=== PATIENT | female | born 1950 | race Caucasian/White ===

== ENCOUNTER 2023-10-15 07:15 | Outpatient (OUT) | payer MEDICARE, SELFPAY ==
--- NOTE | 2023-10-15 07:40 | MM_ITS ---
Patient Name: MANOJ DICKEY MR#: [id number] : 1950 Exam Date: 10/15/2023 Ordering Doctor: Non-Staff Physician RADIOLOGY REPORT PROCEDURE: MM TOMOSYNTHESIS SCREENING BI COMPARISON: MG MAMM SCREEN 3D ODILIA CAD, 10/13/2021. MG MAMM SCREEN 3D [place]ILIA CAD, 10/14/2022. INDICATIONS: screening venkat Calculator Name NCI Breast Cancer Risk Assessment Tool 5 Year Breast Cancer Risk 1.60% Lifetime Breast Cancer Risk 3.70% Personal Breast Cancer No Personal Ovarian Cancer No Treatments None Family Cancers None LOCATION: [facility] BREAST COMPOSITION: Heterogeneously dense,which may obscure small masses. FINDINGS: DIAGNOSTIC CATEGORY 1--NEGATIVE. NO CHANGE FROM COMPARISON ASSESSMENT. RIGHT BREAST: No significant suspicious finding. LEFT BREAST: No significant suspicious finding. RECOMMENDATIONS: ROUTINE MAMMOGRAM AND CLINICAL EVALUATION IN 12 MONTHS. PLEASE NOTE: A NORMAL MAMMOGRAM DOES NOT EXCLUDE THE POSSIBILITY OF BREAST CANCER. A CLINICALLY SUSPICIOUS PALPABLE LUMP SHOULD BE BIOPSIED. Dictated by: Haresh Price MD on 10/15/2023 at 08:39 Approved by: Haresh Price MD on 10/15/2023 at 08:40
== END 2023-10-15 07:16 | disposition home or self-care (01) ==
LOC: MAMMO 07:15
DX: Z12.31 Encounter for screening mammogram for malignant neoplasm of breast (principal)
CPT/HCPCS: 77063; 77067

== ENCOUNTER 2024-10-16 07:45 | Outpatient (OUT) | payer MEDICARE, SELFPAY ==
--- NOTE | 2024-10-16 07:50 | MM_ITS ---
Patient Name: MANOJ DICKEY MR#: [id number] : 1950 Exam Date: 10/16/2024 Ordering Doctor: ROMAN ARCHIBALD RADIOLOGY REPORT PROCEDURE: MM TOMOSYNTHESIS SCREENING BI COMPARISON: MG MAMM SCREEN 3D [place]ILIA CAD, 10/14/2022. MM TOMOSYNTHESIS SCREENING BI, 10/15/2023. INDICATIONS: Screening Calculator Name NCI Breast Cancer Risk Assessment Tool 5 Year Breast Cancer Risk 1.60% Lifetime Breast Cancer Risk 3.40% Personal Breast Cancer No Personal Ovarian Cancer No Treatments None Family Cancers None LOCATION: [facility] BREAST COMPOSITION: The breasts are heterogeneously dense,which may obscure small masses. FINDINGS: DIAGNOSTIC CATEGORY 1--NEGATIVE. NO CHANGE FROM COMPARISON ASSESSMENT. RIGHT BREAST: No significant suspicious finding. LEFT BREAST: No significant suspicious finding. RECOMMENDATIONS: ROUTINE MAMMOGRAM AND CLINICAL EVALUATION IN 12 MONTHS. PLEASE NOTE: A NORMAL MAMMOGRAM DOES NOT EXCLUDE THE POSSIBILITY OF BREAST CANCER. A CLINICALLY SUSPICIOUS PALPABLE LUMP SHOULD BE BIOPSIED. Dictated by: Haresh Price MD on 10/16/2024 at 09:05 Approved by: Haresh Price MD on 10/16/2024 at 09:09
--- OUTSIDE RECORDS SUMMARY | 2024-10-16 07:56 | XMS_ITS | CCD ---
Author Organization [facility] Care Team Providers Care 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 Name Role Phone Roman Archibald Primary Care Provider MIS, DR SY Admitting Unavailable [facility], DR SY Primary Care Unavailable [facility], DR SY Consulting Unavailable [facility], DR SY Attending Unavailable [facility], DR RAFAEL White Consulting Unavailable Might [employer] Primary Care Provider MIGHT, ROMAN Jones Referring Unavailable MIGHT, ROMAN Jones Primary Care Unavailable MIGHT, ROMAN Jones Primary Care Unavailable MIGHTROMAN Primary Care Unavailable MIGHT, ROMAN Jones Referring Unavailable MIGHT, ROMAN Jones Referring Unavailable MIGHT, ROMAN Jones Primary Care Unavailable MIGHT, ROMAN Jones Referring Unavailable MIGHT, ROMAN Jones Primary Care Unavailable Medications Current Medications Medication Drug Class(es) Dates Sig (Normalized) Sig (Original) ascorbic acid 100 mg oral tablet (4 sources) Vitamin C take 1 tablet by mouth once daily Ascorbic Acid (VITAMIN C) 100 MG tablet Take 1 tablet by mouth daily 0 Active ascorbic acid 60 mg / beta carotene 5000 unt / copper sulfate 40 mg / dl-alpha tocopheryl acetate 30 unt / sodium selenite 0.04 mg / zinc oxide 40 mg oral tablet (1 source) Vitamin C take 1 tablet by mouth once daily Multiple Vitamins-Minerals (THERAPEUTIC MULTIVITAMIN-ENERGY TRADING ANALYST ALS) tablet Take 1 tablet by mouth daily 0 Active aspirin 81 mg oral tablet (2 sources) Platelet Aggregation Inhibitor, Nonsteroidal Anti-inflammatory Drug take 1 tablet by mouth once daily aspirin 81 MG tablet Take 81 mg by mouth daily 0 Active calcium carbonate 500 mg oral tablet (5 sources) take 2 tablets by mouth twice daily calcium carbonate (OSCAL) 500 MG TABS tablet Take 2 tablets by mouth 2 times daily 0 Active calcium carbonat e (OSCAL) 500 MG TABS tablet Take 1,000 mg by mouth 2 times daily 0 Active cholecalciferol 0.05 mg oral capsule (4 sources) Vitamin D Cholecalciferol (VITAMIN D3) 50 MCG (1999 UT) CAPS Take by mouth 0 Active dicyclomine hydrochloride 20 mg oral tablet (3 sources) Anticholinergic Start: 09-20-20 End: 09-20-20 take 1 tablet by mouth four times daily as needed dicyclomine (BENTYL) 20 MG tablet Take 1 tablet by mouth 4 times daily as needed (abdominal cramping) 20 tablet 0 09/20/2023 09/20/2023 Discontinued Start: 09-20-2023 dicyclomine (B ENTYL) capsule 10 mg famotidine 20 mg oral tablet (2 sources) Histamine-2 Receptor Antagonist Start: 09-20-2023 End: 10-04-2023 take 1 tablet by mouth twice daily famotidine (PEPCID) 20 MG tablet Take 1 tablet by mouth 2 times daily for 14 days 28 tablet 0 09/20/2023 09/20/2023 Discontinued Multiple Vitamins-Minerals (THERAPEUTIC MULTIVITAMIN-ENERGY TRADING ANALYST ALS) tablet (4 sources) take 1 tablet by mouth once daily Multiple Vitamins-Minerals (THERAPEUTIC MULTIVITAMIN-MINERAL S) tablet Take 1 tablet by mouth daily 0 Active Highland-3 Fatty Acids (FISH OIL PO) (5 sources) Highland-3 Fatty Ac ids (FISH OIL PO) Take by mouth 0 Active simvastatin 10 mg oral tablet (5 sources) HMG-CoA Reductase Inhibitor Start: 08-02-2023 simvastatin (ZOCOR) 10 MG tablet Indications: Hyperlipidemia, unspecified hyperlipidemia type TAKE 1 TABLET NIGHTLY 90 tablet 3 08/02/2023 Active Start: 08-05-2022 simvastatin (Z OCOR) 10 MG tablet Indications: Hyperlipidemia, unspecified hyperlipidemia type TAKE 1 TABLET NIGHTLY 90 tablet 3 08/05/2022 Active Start: 08-14-2020 take 1 tablet by alyse th once daily simvastatin (ZOCOR) 10 MG tablet Indications: Hyperlipidemia, unspecified hyperlipidemia type Take 1 tablet by mouth nightly 90 tablet 3 08/14/2020 Active Start: 05-22-2019 simvastatin (Z OCOR) 10 MG tablet Indications: Hyperlipidemia, unspecified hyperlipidemia type TAKE 1 TABLET NIGHTLY 90 tablet 4 05/22/2019 Active Problems Active Problems Problem Classification Problem Date Documented Da te Episodic/Chronic Disorders of lipid metabolism (9 sources) Dyslipidemia; Translations: [Hyperlipidemia] Onset: 05-23-2018 05-23-2018 Chronic Other nervous system disorders (3 sources) Other chronic pain; Translations: [Other chronic pain] Onset: 01-19-2024 Chronic Other non-traumatic joint disorders (3 sources) Pain in left shoulder; Translations: [Pain in left shoulder] Onset: 01-19-2024 Episodic Other non-traumatic joint disorders (3 sources) Other specified joint disorders, left shoulder; Translations: [Other specified joint disorders, left shoulder] Onset: 01-19-2024 Episodic Other screening for suspected conditions (not mental disorders or infectious disease) (6 sources) Patient encounter status; Translations: [Encounter for screening for lipoid disorders] Onset: 10-14-2022 Episodic Past or Other Problems Problem Classification Problem Date Documented Da te Episodic/Chronic Gastritis and duodenitis (2 sources) Acute superficial gastritis; Translations: [Acute gastritis without bleeding] Onset: 09-20-2023 09-20-2023 Episodic Unclassified (1 source) Onset: 10-26-2023 10-26-2023 Results Test Name Value Interpretation Reference Range Facility XR SHOULDER LEFT (MIN 2 VIEW S)on 01-22-2024 XR SHOULDER LEFT (MIN 2 VIEWS) EXAMINATION: 3 XRAY VIEWS OF THE LEFT SHOULDER 01/19/2024 9:48 am COMPARISON: None. HISTORY: ORDERING SYSTEM PROVIDED HISTORY: Chronic left shoulder pain TECHNOLOGIST PROVIDED HISTORY: pain, numbness FINDINGS: There is no evidence of acute fracture. Alignment appears intact. There is a tiny calcification adjacent to the greater tuberosity which could indicate rotator cuff calcific tendinitis. Joint spaces appear intact. IMPRESSION: No acute osseous abnormality. Suspect rotator cuff calcific tendinitis Interpreted by: Navi Anthony MD Signed by: Navi Anthony MD 01/22/24 Final result Normal [facility] Lipid Profileon 10-21-2023 Cholesterol [Mass/Vol] 237 mg/dL High 0-199 [facility] Comment on above: Result Comment: Cholesterol Guidelines: <200 Desirable 200-240 Borderline >240 Undesirable Performed By: #### L IPR #### [facility] [employer] [address] [place] [id number] Dance Instructor: Ar Mcclure MD Cholesterol in HDL [Mass/Vol] 106 mg/dL Normal >40 [facility] Comment on above: Result Comment: HDL Guidelines: <40 Undesirable 40-59 Borderline >59 Desirable Performed By: #### L IPR #### [facility] [employer] [address] [place] [id number] Dance Instructor: Ar Mcclure MD Cholesterol in LDL [Mass/Vol] 119 mg/dL High 0-100 [facility] Comment on above: Result Comment: LDL Guidelines: <100 Desirable 100-129 Near to/above Desirable 130-159 Borderline >159 Undesirable Direct (measured) LDL and calculated LDL are not interchangeable tests. Performed By: #### L IPR #### [facility] [employer] [address] [place] [id number] Dance Instructor: Ar Mcclure MD Cholesterol in VLDL [Mass/Vol] 12 mg/dL Normal [facility] Comment on above: Performed By: #### L IPR #### [address] [address] Dance Instructor: Ar Mcclure MD Cholesterol.total/Choles terol in HDL [Mass ratio] 2.0 {ratio} Normal [facility] Comment on above: Performed By: #### L IPR #### [facility] [employer] [address] [place] [address] Dance Instructor: Ar Mcclure MD Triglyceride [Mass/Vol] 61 mg/dL Normal <150 M [facility] Comment on above: Result Comment: Triglyceride Guidelines: <150 Desirable 150-199 Borderline 200-499 High >499 Very high Based on AHA Guidelines for fasting triglyceride, July 2012. Performed By: #### L IPR #### [facility] [employer] [address] [place] [id number] Dance Instructor: Ar Mcclure MD CBC with Auto Differentialon 09-20-2023 Basophils (Bld) [#/Vol] 0.04 10*3/uL [facility] [employer] Basophils/100 WBC (Bld) 1 % 0 - 2 % [facility] Eosinophils (Bld) [#/Vol] 0.06 10*3/uL [facility] Eosinophils/100 WBC (Bld) 1 % 1 - 4 % [facility] Erythrocyte distribution width (RBC) [Ratio] 12.7 % 11.8 - 14.4 % [facility] Hematocrit (Bld) [Volume fraction] 41.7 % 36.3 - 47.1 % [facility] Hemoglobin (Bld) [Mass/Vol] 13.8 g/dL 11.9 - 15.1 g/dL [facility] Immature granulocytes (Bld) [#/Vol] [facility] Immature granulocytes/100 WBC (Bld) 0 % 0 [facility] Interpretation and review of laboratory results Abnormal [facility] Lymphocytes/100 WBC (Bld) 16 % Low 24 - 43 % [facility] Lymphocytes/100 WBC (Bld) 1.07 % Low [facility] MCH (RBC) [Entitic mass] 30.9 pg 25.2 - 33.5 pg [facility] MCHC (RBC) [Mass/Vol] 33.1 g/dL 28.4 - 34.8 g/dL [facility] MCV (RBC) [Entitic vol] 93.5 fL 82.6 - 102.9 fL [facility] Monocytes/100 WBC (Bld) 9 % 3 - 12 % [facility] Monocytes/100 WBC (Bld) 0.57 % [facility] Neutrophils/100 WBC (Bld) 73 % High 36 - 65 % [facility] Nucleated RBC/100 WBC (Bld) [Ratio] 0.0 % 0.0 per 100 WBC [facility] Platelet mean volume (Bld) [Entitic vol] 9.7 fL 8.1 - 13.5 fL [facility] Platelets (Bld) [#/Vol] 263 10*3/uL [facility] RBC (Bld) [#/Vol] 4.46 10*6/uL 3.95 - 5.1 1 m/uL [facility] Segmented neutrophils/100 WBC (Bld) 4.91 % [facility] WBC other (Bld) [#/Vol] 6.7 [facility] CBC with Diffon 09-20-2023 Abs. Basophil 0.04 k/uL Normal 0.00-0.20 [facility] Comment on above: Performed By: #### C DP, CP, LIP #### [facility] [address] [place] [address] Dance Instructor: Haresh Holley MD Abs.Imm.Granulocyte <0.03 Normal 0.00-0.30 [facility] Comment on above: Performed By: #### C DP, CP, LIP #### [facility] [address] [place] [address] Dance Instructor: Haresh Holley MD Abs.Neutrophil (Seg) 4.91 k/uL Normal 1.50-8.10 [facility] Comment on above: Performed By: #### C DP, CP, LIP #### [address] [place] [address] Dance Instructor: Haresh Holley MD Basophils/100 WBC (Bld) 1 % Normal 0-2 [facility] Comment on above: Performed By: #### C DP, CP, LIP #### [address] [place] [address] Dance Instructor: Haresh Holley MD Eosinophils (Bld) [#/Vol] 0.06 10*3/uL Normal 0.00-0.44 [facility] Comment on above: Performed By: #### C DP, CP, LIP #### [facility] [address] [place] [address] Dance Instructor: Haresh Holley MD Eosinophils/100 WBC (Bld) 1 % Normal 1-4 [facility] Comment on above: Performed By: #### C DP, CP, LIP #### [facility] [address] [place], [place] [id number] Dance Instructor: Haresh Holley MD Erythrocyte distribution width (RBC) [Ratio] 12.7 % Normal 11.8-14.4 [facility] Comment on above: Performed By: #### C DP, CP, LIP #### [facility] [address] [place], [place] [phone] Dance Instructor: Haresh Holley MD Hematocrit (Bld) [Volume fraction] 41.7 % Normal 36.3-47.1 [facility] Comment on above: Performed By: #### C DP, CP, LIP #### [facility] [address] [place], [place] [phone] Dance Instructor: Haresh Holley MD Hemoglobin (Bld) [Mass/Vol] 13.8 g/dL Normal 11.9-15.1 [facility] Comment on above: Performed By: #### C DP, CP, LIP #### [address] [place], [facility]83 Dance Instructor: Haresh Holley MD Immature granulocytes/100 WBC (Bld) 0 % Normal 0 [facility] Comment on above: Performed By: #### C DP, CP, LIP #### [address] [place], [facility]83 Dance Instructor: Haresh Hloley MD Lymphocytes (Bld) [#/Vol] 1.07 10*3/uL Low 1.10-3.70 [facility] Comment on above: Performed By: #### C DP, CP, LIP #### [facility] [address] [place], [facility]83 Dance Instructor: Haresh Holley MD Lymphocytes/100 WBC (Bld) 16 % Low 24-43 [facility] Comment on above: Performed By: #### C DP, CP, LIP #### [facility] [address] [place] [address] Dance Instructor: Haresh Holley MD MCH (RBC) [Entitic mass] 30.9 pg Normal 25.2-33.5 [facility] Comment on above: Performed By: #### C DP, CP, LIP #### [address] [place] [address] Dance Instructor: Haresh Holley MD MCHC (RBC) [Mass/Vol] 33.1 g/dL Normal 28.4-34.8 [facility] Comment on above: Performed By: #### C DP, CP, LIP #### [address] [place] [address] Dance Instructor: Haresh Holley MD MCV (RBC) [Entitic vol] 93.5 fL Normal 82.6-102.9 [facility] Comment on above: Performed By: #### C DP CP, LIP #### [address] [place] [address] Dance Instructor: Haresh Holley MD Monocytes (Bld) [#/Vol] 0.57 10*3/uL Normal 0.10-1.20 [facility] Comment on above: Performed By: #### C DP CP, LIP #### [address] [place] [address] Dance Instructor: Haresh Holley MD Monocytes/100 WBC (Bld) 9 % Normal 3-12 [facility] Comment on above: Performed By: #### C DP CP, LIP #### [address] [place], [facility]83 Dance Instructor: Haresh Holley MD Neutrophil (Seg) 73 % High 36-65 [facility] Comment on above: Performed By: #### C DP CP, LIP #### [address] [place] [phone] Dance Instructor: Haresh Holley MD NRBC Automated 0.0 per 100 WBC Normal 0.0 [facility] Comment on above: Performed By: #### C DP, CP, LIP #### [facility] [address] [place], [place] [phone] Dance Instructor: Haresh Holley MD Platelet mean volume (Bld) [Entitic vol] 9.7 fL Normal 8.1-13.5 [facility] Comment on above: Performed By: #### C DP, CP, LIP #### [facility] [address] [place] [address] Dance Instructor: Haresh Holley MD Platelets (Bld) [#/Vol] 263 10*3/uL Normal 138-453 [facility] Comment on above: Performed By: #### C DP, CP, LIP #### [facility] [address] [place] [address] Dance Instructor: Haresh Holley MD RBC (Bld) [#/Vol] 4.46 10*6/uL Normal 3.95-5.11 [facility] Comment on above: Performed By: #### C DP, CP, LIP #### [address] [place], [place] [phone] Dance Instructor: Haresh Holley MD WBC (Bld) [#/Vol] 6.7 10*3/uL Normal 3.5-11.3 [facility] Comment on above: Performed By: #### C DP, CP, LIP #### [address] [place], [place] [phone] Dance Instructor: Haresh Holley MD Comp Metabolic Profon 2022 Albumin [Mass/Vol] 4.2 g/dL Normal 3.5-5.2 [facility] Comment on above: Performed By: #### C DP, CP, LIP #### [facility] [address] [place], [place] [phone] Dance Instructor: Haresh Holley MD Albumin/Glob Ratio 1.6 Normal 1.0-2.5 [facility] Comment on above: Performed By: #### C DP, CP, LIP #### [facility] [address] [place], [place] [phone] Dance Instructor: Haresh Holley MD Alkaline Phos 54 U/L Normal 35-104 [facility] Comment on above: Performed By: #### C DP, CP, LIP #### [facility] [address] [place], [place] [phone] Dance Instructor: Haresh Holley MD ALT [Catalytic activity/Vol] 12 U/L Normal 5-33 [facility] Comment on above: Performed By: #### C DP, CP, LIP #### [facility] [address] [place], [place] [phone] Dance Instructor: Haresh Holley MD Anion gap [Moles/Vol] 11 mmol/L Normal 9-17 [facility] Comment on above: Performed By: #### C DP, CP, LIP #### [facility] [address] [place], [place] [phone] Dance Instructor: Haresh Holley MD AST [Catalytic activity/Vol] 20 U/L Normal <32 [facility] Comment on above: Performed By: #### C DP, CP, LIP #### [facility] [address] [place], [place] [phone] Dance Instructor: Haresh Holley MD Bilirubin [Mass/Vol] 0.5 mg/dL Normal 0.3-1.2 [facility] Comment on above: Performed By: #### C DP, CP, LIP #### [facility] [address] [place], [place] [phone] Dance Instructor: Haresh Holley MD BUN/CRE Ratio 17 Normal 9-20 [facility] Comment on above: Performed By: #### C DP, CP, LIP #### [facility] [address] [place], [place] [phone] Dance Instructor: Haresh Holley MD Calcium [Mass/Vol] 10.1 mg/dL Normal 8.6-10.4 [facility] Comment on above: Performed By: #### C ROMAIN CP, LIP #### [facility] [address] [place] [address] Dance Instructor: Haresh Holley MD Chloride [Moles/Vol] 98 mmol/L Normal 98-107 [facility] Comment on above: Performed By: #### C ROMAIN CP, LIP #### [facility] [address] [place] [address] Dance Instructor: Haresh Holley MD CO2 [Moles/Vol] 27 mmol/L Normal 20-31 [facility] Comment on above: Performed By: #### C ROMAIN CP, LIP #### [facility] [address] [place], [place] [phone] Dance Instructor: Haresh Holley MD Creatinine [Mass/Vol] 0.6 mg/dL Normal 0.5-0.9 [facility] Comment on above: Performed By: #### C JANET HOYOS, LIP #### [facility] [address] [place] [address] Dance Instructor: Haresh Holley MD GFR/1.73 sq M.predicted among non-blacks MDRD (S/P/Bld) [Vol rate/Area] mL/min/{1.73_m2} Normal >60 [facility] Comment on above: Result Comment: These results are not intended for use in patients <18 years of age. eGFR results are calculated without a race factor using the 2020 CKD-EPI equation. Careful clinical correlation is recommended, particularly when comparing to results calculated using previous equations. The CKD-EPI equation is less accurate in patients with extremes of muscle mass, extra-renal metabolism of creatine, excessive creatine ingestion, or following therapy that affects renal tubular secretion. Performed By: #### C DP, CP, LIP #### [facility] [address] [place] [address] Dance Instructor: Haresh Holley MD Glucose [Mass/Vol] 131 mg/dL High 70-99 [facility] Comment on above: Performed By: #### C DP CP, LIP #### [facility] [address] [place] [address] Dance Instructor: Haresh Holley MD Potassium [Moles/Vol] 3.9 mmol/L Normal 3.7-5.3 [facility] Comment on above: Performed By: #### C DP CP, LIP #### [facility] [address] [place] [address] Dance Instructor: Haresh Holley MD Protein [Mass/Vol] 6.9 g/dL Normal 6.4-8.3 [facility] Comment on above: Performed By: #### C ROMAIN CP, LIP #### [facility] [address] [place] [address] Dance Instructor: Haresh Holley MD Sodium [Moles/Vol] 136 mmol/L Normal 135-144 [facility] Comment on above: Performed By: #### C ROMAIN CP, LIP #### [facility] [address] [place] [address] Dance Instructor: Haresh Holley MD Urea nitrogen [Mass/Vol] 10 mg/dL Normal 8-23 [facility] Comment on above: Performed By: #### C ROMAIN CP, LIP #### [facility] [address] [place], [place] [phone] Dance Instructor: Haresh Holley MD Comprehensive Metabolic Pane [facility] 09-20-2023 Albumin [Mass/Vol] 4.2 g/dL 3.5 - 5.2 g/dL [facility] Albumin/Globulin [Mass ratio] 1.6 {ratio} 1.0 - 2.5 [facility] ALP [Catalytic activity/Vol] 54 U/L 35 - 104 U/L [facility] ALT [Catalytic activity/Vol] 12 U/L 5 - 33 U/L [facility] Anion gap [Moles/Vol] 11 mmol/L 9 - 17 mmol/L [facility] AST [Catalytic activity/Vol] 20 U/L NINF - 32 U/L [facility] Bilirubin [Mass/Vol] 0.5 mg/dL 0.3 - 1 .2 mg/dL [facility] Calcium [Mass/Vol] 10.1 mg/dL 8.6 - 10. 4 mg/dL [facility] Chloride [Moles/Vol] 98 mmol/L 98 - 10 7 mmol/L [facility] CO2 [Moles/Vol] 27 mmol/L 20 - 31 mmol/L [facility] Creatinine [Mass/Vol] 0.6 mg/dL 0.5 - 0.9 mg/dL [facility] GFR/1.73 sq M.predicted MDRD (S/P/Bld) [Vol rate/Area] - PINF [facility] Comment on above: These results are not intended for use in patients <18 years of age. eGFR results are calculated without a race factor using the 2020 CKD-EPI equation. Careful clinical correlation is recommended, particularly when comparing to results calculated using previous equations. The CKD-EPI equation is less accurate in patients with extremes of muscle mass, extra-renal metabolism of creatine, excessive creatine ingestion, or following therapy that affects renal tubular secretion. Glucose [Mass/Vol] 131 mg/dL High 70 - 99 mg/dL [facility] Interpretation and review of laboratory results Abnormal [facility] Potassium [Moles/Vol] 3.9 mmol/L 3.7 - 5.3 mmol/L [facility] Protein [Mass/Vol] 6.9 g/dL 6.4 - 8.3 g/dL [facility] Sodium [Moles/Vol] 136 mmol/L 135 - 144 mmol/L [facility] Urea nitrogen [Mass/Vol] 10 mg/dL 8 - 23 mg/d L [facility] Urea nitrogen/Creatinine [Mass ratio] 17 mg/mg 9 - 20 [facility] Lipaseon 09-20-2023 Lipase [Catalytic activity/Vol] 23 U/L Normal 13-60 [facility] Comment on above: Performed By: #### C DP, CP, LIP #### [facility] [address] [place] [address] Dance Instructor: Haresh Holley MD Lipase [Catalytic activity/Vol] 23 U/L 13 - 60 U/L [facility] No Panel Informationon 09-20 [facility] Urinalysis w/ Microon 2022 Amorphous sediment LM Ql (Urine sed) 1+ Abnormal [facility] Comment on above: Performed By: #### U AMIC #### [facility] [address] [place] [address] Dance Instructor: Haresh Holley MD Bacteria TRACE Abnormal [facility] Comment on above: Performed By: #### U AMIC #### [facility] [address] [place] [address] Dance Instructor: Haresh Holley MD Bilirubin, SemiQt,Ur Negative Normal NEG [facility] Comment on above: Performed By: #### U AMIC #### [facility] [address] [place] [address] Dance Instructor: Haresh Holley MD Blood, Urine Negative Normal [facility] Comment on above: Performed By: #### U AMIC #### [facility] [address] [place], [facility] Dance Instructor: Haresh Holley MD Clarity (U) SLIGHTLY CLOUDY Abnormal CLEAR [facility] Comment on above: Performed By: #### U AMIC #### [facility] [address] [place] [address] Dance Instructor: Haresh Holley MD Color (U) Yellow Normal [facility] Comment on above: Performed By: #### U AMIC #### [facility] [address] [place] [address] Dance Instructor: Haresh Holley MD Epithelial cells LM Ql (Urine sed) 0 TO 2 Normal 0-25 [facility] Comment on above: Performed By: #### U AMIC #### [facility] [address] [place] [address] Dr[place], [place] [phone] Dance Instructor: Haresh Holley MD Glucose Ql (U) Negative Normal NEG [facility] Comment on above: Performed By: #### U AMIC #### [facility] [address] [place] [address] [place] [address] Dance Instructor: Haresh Holley MD Ketones Ql (U) 1+ mg/dL Abnormal NEG [facility] Comment on above: Performed By: #### U AMIC #### [facility] [address] [place] [address] [place]. [place], [place] [phone] Dance Instructor: Haresh Holley MD Leukocyte esterase Test strip Ql (U) Negative Normal NEG [facility] Comment on above: Performed By: #### U AMIC #### [facility] [address] [place] [address] [place] [address] Dance Instructor: Haresh Holley MD Nitrite,Ur Negative Normal NEG [facility] Comment on above: Performed By: #### U AMIC #### [facility] [address] [place] [address] [place] [address] Dance Instructor: Haresh Holley MD PH,Ur 8.0 Normal 5.0-9.0 [facility] Comment on above: Performed By: #### U AMIC #### [facility] [address] [place] [address] [place] [address] Dance Instructor: Haresh Holley MD Protein Ql (U) Negative Normal NEG [facility] Comment on above: Performed By: #### U AMIC #### [facility] [address] [place] [address] [place]. [place], [place] [id number] Dance Instructor: Haresh Holley MD Spec. [place],Ur 1.020 Normal 1.010-1.020 [facility] Comment on above: Performed By: #### U AMIC #### [facility] [address] [place] [address] Dance Instructor: Haresh Holley MD Urine RBC's None Normal 0-2 [facility] Comment on above: Performed By: #### U AMIC #### [facility] [address] [place] [id number] Dance Instructor: Haresh Holley MD Urine WBC's None Normal 0-5 [facility] Comment on above: Performed By: #### U AMIC #### [facility] [address] [place] [id number] Dance Instructor: Haresh Holley MD Urobilinogen,Ur Normal Normal 0.0-1.0 [facility] Comment on above: Performed By: #### U AMIC #### [facility] [address] [place] [id number] Dance Instructor: Haresh Holley MD Urinalysis with Microscopico n 09-20-2023 Amorphous sediment LM Ql (Urine sed) 1+ Abnormal None [facility] Bacteria LM Ql (Urine sed) TRACE Abnormal None [facility] Bilirubin Ql (U) Negative NEGATIVE [facility] Clarity (U) SLIGHTLY CLOUDY Abnormal Clear [facility] Color (U) Yellow Yellow [facility] Epithelial cells LM.HPF (Urine sed) [#/Area] 0 TO 2 [facility] Glucose Test strip (U) [Mass/Vol] Negative NEGATIVE mg/dL [facility] Hemoglobin Auto test strip Ql (U) Negative NEGATIVE [facility] Interpretation and review of laboratory results Abnormal [facility] Ketones (U) [Mass/Vol] 1+ Abnormal NEGATIVE mg/d L [facility] Leukocyte esterase Test strip Ql (U) Negative NEGATIVE [facility] Nitrite Ql (U) Negative NEGATIVE [facility] pH (U) 8.0 [pH] 5.0 - 9.0 [facility] Protein (U) [Mass/Vol] Negative NEGATIVE mg/d L [facility] RBC LM.HPF (Urine sed) [#/Area] None [facility] Specific gravity (U) [Rel density] 1.020 1.010 - 1.020 [facility] Urobilinogen Qn (U) Normal 0.0 - 1. 0 EU/dL [facility] WBC LM.HPF (Urine sed) [#/Area] None [facility] Ann 10-15-2022 ALT [Catalytic activity/Vol] 15 U/L 5 - 33 U/L [facility] Tara 10-15-2022 AST [Catalytic activity/Vol] 23 U/L NINF - 32 U/L [facility] Basic Metabolic Panelon 10-04 Anion gap [Moles/Vol] 9 mmol/L 9 - 17 mmol/L [facility] Calcium [Mass/Vol] 10.1 mg/dL 8.6 - 10. 4 mg/dL [facility] Chloride [Moles/Vol] 99 mmol/L 98 - 10 7 mmol/L [facility] CO2 [Moles/Vol] 28 mmol/L 20 - 31 mmol/L [facility] Creatinine [Mass/Vol] 0.66 mg/dL 0.50 - 0.90 mg/dL [facility] GFR/1.73 sq M.predicted MDRD (S/P/Bld) [Vol rate/Area] - PINF [facility] Comment on above: Effective Jul 06, 2022 These results are not intended for use in patients <18 years of age. eGFR results are calculated without a race factor using the 2020 CKD-EPI equation. Careful clinical correlation is recommended, particularly when comparing to results calculated using previous equations. The CKD-EPI equation is less accurate in patients with extremes of muscle mass, extra-renal metabolism of creatine, excessive creatine ingestion, or following therapy that affects renal tubular secretion. Glucose [Mass/Vol] 97 mg/dL 70 - 99 mg/dL [facility] Potassium [Moles/Vol] 4.2 mmol/L 3.7 - 5.3 mmol/L [facility] Sodium [Moles/Vol] 136 mmol/L 135 - 144 mmol/L [facility] Urea nitrogen (BldV) [Mass/Vol] 11 mg/dL 8 - 23 mg/dL [facility] Urea nitrogen/Creatinine (Bld) [Mass ratio] 17 9 - 20 [facility] Lipid Panelon 10-15-2022 Cholesterol [Mass/Vol] 237 mg/dL High NINF - 200 mg/dL [facility] [employer] Comment on above: Cholesterol Guidelines: <200 Desirable 200-240 Borderline >240 Undesirable Cholesterol in HDL [Mass/Vol] 113 mg/dL 40 - PINF mg/dL [facility] [employer] Comment on above: HDL Guidelines: <40 Undesirable 40-59 Borderline >59 Desirable Cholesterol in LDL [Mass/Vol] 110 mg/dL 0 - 130 mg/dL [facility] [employer] Comment on above: LDL Guidelines: <100 Desirable 100-129 Near to/above Desirable 130-159 Borderline >159 Undesirable Direct (measured) LDL and calculated LDL are not interchangeable tests. Cholesterol.total/Choles terol in HDL [Mass ratio] 2.1 {ratio} NINF - 5 [facility] Interpretation and review of laboratory results Abnormal [facility] Triglyceride [Mass/Vol] 69 mg/dL NINF - 150 mg/dL [facility] Comment on above: Triglyceride Guidelines: <150 Desirable 150-199 Borderline 200-499 High >499 Very high Based on AHA Guidelines for fasting triglyceride, July 2012. [facility] No Panel Informationon 10-15 [facility] MG MAMM SCREEN 3D ODILIA CADon 10-14-2022 MG MAMM SCREEN 3D ODILIA CAD Patient: MANOJ DICKEY Exam Date: 10/14/2022 : 1950 Gender:F Ordering : ROMAN ARCHIBALD Admission #: [id number] Family : Order #: [id number] CLICK HERE TO VIEW EXAM RADIOLOGY REPORT PROCEDURE: MAMMOGRAM SCREENING 3D BILATERAL CAD COMPARISON: MG MAMM SCREEN 3D ODILIA CAD, 10/13/2021. MG MAMM SCREEN ODILIA W CAD, 10/10/2020. MG MAMM SCREEN ODILIA W CAD, 10/09/2019. DIGITIZED_MAMMO, 09/06/2009. INDICATIONS: Screening mammography Calculator Name NCI Breast Cancer Risk Assessment Tool 5 Year Breast Cancer Risk 1.60% Lifetime Breast Cancer Risk 3.90% Personal Breast Cancer No Personal Ovarian Cancer No Treatments None Family Cancers None LOCATION: [facility] BREAST COMPOSITION: Heterogeneously dense,which may obscure small masses. FINDINGS: DIAGNOSTIC CATEGORY 1--NEGATIVE. RIGHT BREAST: No significant suspicious finding. No significant change has occurred. LEFT BREAST: No significant suspicious finding. No significant change has occurred. RECOMMENDATIONS: ROUTINE MAMMOGRAM AND CLINICAL EVALUATION IN 12 MONTHS. PLEASE NOTE: A NORMAL MAMMOGRAM DOES NOT EXCLUDE THE POSSIBILITY OF BREAST CANCER. A CLINICALLY SUSPICIOUS PALPABLE LUMP SHOULD BE BIOPSIED. Dictated by: Rafael Contreras M.D. on 10/14/2022 at 09:41 Approved by: Rafael Contreras M.D. on 10/14/2022 at 09:47 Normal [facility] Ann 10-17-2020 ALT [Catalytic activity/Vol] 18 U/L 5 - 33 U/L [place] Tara 10-17-2020 AST [Catalytic activity/Vol] 29 U/L <32 [place] Basic Metabolic Panelon 10-04 Anion gap [Moles/Vol] 8 mmol/L Low 9 - 17 mmol/L [place] Bun/Cre Ratio 14 [place] Calcium [Mass/Vol] 10.0 mg/dL 8.6 - 10. 4 mg/dL [place] Chloride [Moles/Vol] 93 mmol/L Low 98 - 10 7 mmol/L [place] CO2 [Moles/Vol] 29 mmol/L 20 - 31 mmol/L [place] Creatinine [Mass/Vol] 0.78 mg/dL 0.5 - 0.9 mg/dL [place] GFR >60 >60 mL/min [place] GFR Non- >60 >60 mL/min [place] Glucose [Mass/Vol] 120 mg/dL High 70 - 99 mg/dL [place] Interpretation and review of laboratory results Abnormal [place] Potassium [Moles/Vol] 4.4 mmol/L 3.7 - 5.3 mmol/L [place] Sodium [Moles/Vol] 130 mmol/L Low 135 - 144 mmol/L [place] Urea nitrogen [Mass/Vol] 11 mg/dL 8 - 23 mg/d L [place] Lipid Panelon 10-17-2020 Cholesterol [Mass/Vol] 221 mg/dL High <200 Me [place] Comment on above: Cholesterol Guidelines: <200 Desirable 200-240 Borderline >240 Undesirable Cholesterol in HDL [Mass/Vol] 115 mg/dL >40 [place] Comment on above: HDL Guidelines: <40 Undesirable 40-59 Borderline >59 Desirable Cholesterol in LDL [Mass/Vol] 93 mg/dL 0 - 130 mg/dL [place] Comment on above: LDL Guidelines: <100 Desirable 100-129 Near to/above Desirable 130-159 Borderline >159 Undesirable Direct (measured) LDL and calculated LDL are not interchangeable tests. Cholesterol in VLDL [Mass/Vol] NOT REPORTED 1 - 30 mg/dL [place] Cholesterol.total/Choles terol in HDL [Mass ratio] 1.9 {ratio} <5 [place] Interpretation and review of laboratory results Abnormal [place] Triglyceride [Mass/Vol] 64 mg/dL <150 [place] Comment on above: Triglyceride Guidelines: <150 Desirable 150-199 Borderline 200-499 High >499 Very high Based on AHA Guidelines for fasting triglyceride, July 2012. Metabolic Panelon 10-17-2020 GFR/1.73 sq M predicted among non-blacks MDRD (S/P/Bld) [Vol rate/Area] [place] Comment on above: Average GFR for 70 o r more years old: 75 mL/min/1.73sq m Chronic Kidney Disease: <60 mL/min/1.73sq m Kidney failure: <15 mL/min/1.73sq m eGFR calculated using average adult body mass. Additional eGFR calculator available at: http://www.Kentaura/multiple_crcl_2012.htm Stage 1: Some kidney damage normal GFR Stage 2: Mild kidney damage GFR 60-89 Stage 3: Moderate kidney damage GFR 30-59 Stage 4: Severe kidney damage GFR 15-29 Stage 5: Severe kidney damage GFR <15 ESRD - chronic treatment by dialysis or transplant ALTOrdered By: Roman Archibald o n 10-17-2019 ALT [Catalytic activity/Vol] 14 U/L 5 - 33 U/L [employer] Phone: ASTOrdered By: Roman o n 10-17-2019 AST [Catalytic activity/Vol] 21 U/L <32 [employer] Phone: Basic Metabolic PanelOrdered By: Roman Archibald 10-17-2019 Anion gap [Moles/Vol] 13 mmol/L 9 - 17 mmol/L [employer] Phone: Bun/Cre Ratio 23 High [employer] Work Phone: Calcium [Mass/Vol] 9.5 mg/dL 8.6 - 10. 4 mg/dL [employer] Phone: Chloride [Moles/Vol] 96 mmol/L Low 98 - 10 7 mmol/L [employer] Phone: CO2 [Moles/Vol] 28 mmol/L 20 - 31 mmol/L [employer] Phone: Creatinine [Mass/Vol] 0.62 mg/dL 0.5 - 0.9 mg/dL [employer] Phone: GFR >60 >60 mL/min [employer] Phone: GFR Comment [employer] Phone: Comment on above: Average GFR for 70 o r more years old: 75 mL/min/1.73sq m Chronic Kidney Disease: <60 mL/min/1.73sq m Kidney failure: <15 mL/min/1.73sq m eGFR calculated using average adult body mass. Additional eGFR calculator available at: http://www.appsFreedom.GetGifted/multiple_crcl_2012.htm GFR Non- >60 >60 mL/min [employer] Phone: GFR Staging [employer] Phone: Comment on above: Stage 1: Some kidney damage normal GFR Stage 2: Mild kidney damage GFR 60-89 Stage 3: Moderate kidney damage GFR 30-59 Stage 4: Severe kidney damage GFR 15-29 Stage 5: Severe kidney damage GFR <15 ESRD - chronic treatment by dialysis or transplant Glucose [Mass/Vol] 99 mg/dL 70 - 99 mg/dL [facility] [employer] Work Phone: Potassium [Moles/Vol] 4.5 mmol/L 3.7 - 5.3 mmol/L [facility] [employer] Work Phone: Sodium [Moles/Vol] 137 mmol/L 135 - 144 mmol/L [facility] [employer] Work Phone: Urea nitrogen [Mass/Vol] 14 mg/dL 8 - 23 mg/d L [facility] [employer] Phone: CBC Auto DifferentialOrdered By: Roman Archibald on 10-17-2019 Absolute Eos # 0.21 [facility] Work Phone: Absolute Immature Granulocyte 0.03 [facility] Work Phone: Absolute Lymph # 1.25 [facility] Work Phone: Absolute [place] # 0.79 [facility] Work Phone: Basophils (Bld) [#/Vol] 0.03 10*3/uL [facility] [employer] Work Phone: Basophils/100 WBC (Bld) 0 % 0 - 2 % M [facility] [employer] Work Phone: Differential Type NOT REPORTED [facility] [employer] Phone: Eosinophils/100 WBC (Bld) 3 % 1 - 4 % [facility] [employer] Phone: Erythrocyte distribution width (RBC) [Ratio] 12.4 % 11.8 - 14.4 % [facility] [employer] Phone: Hematocrit (Bld) [Volume fraction] 43.0 % 36.3 - 47.1 % [facility] [employer] Work Phone: Hemoglobin (Bld) [Mass/Vol] 13.4 g/dL 11.9 - 15.1 g/dL [employer] Phone: Immature granulocytes/100 WBC (Bld) 0 % 0 [employer] Phone: Interpretation and review of laboratory results Abnormal [employer] Phone: Lymphocytes/100 WBC (Bld) 17 % Low 24 - 43 % [employer] Phone: MCH (RBC) [Entitic mass] 30.3 pg 25.2 - 33.5 pg [employer] Phone: MCHC (RBC) [Mass/Vol] 31.2 g/dL 28.4 - 34.8 g/dL [employer] Phone: MCV (RBC) [Entitic vol] 97.3 fL 82.6 - 102.9 fL [employer] Phone: Monocytes/100 WBC (Bld) 11 % 3 - 12 % [employer] Phone: NRBC Automated 0.0 0.0 per 100 WBC [employer] Phone: Platelet Estimate NOT REPORTED [employer] Phone: Platelet mean volume (Bld) [Entitic vol] 10.5 fL 8.1 - 13.5 fL [employer] Phone: Platelets (Bld) [#/Vol] 272 10*3/uL [employer] Phone: RBC (Bld) [#/Vol] 4.42 10*6/uL 3.95 - 5.1 1 m/uL [employer] Phone: RBC morphology finding Nom (Bld) NOT REPORTED [employer] Phone: Segmented neutrophils/100 WBC (Bld) 69 % High 36 - 65 % [employer] Phone: Segs Absolute 4.98 [facility] Work Phone: WBC (Bld) [#/Vol] 7.3 10*3/uL [facility] [employer] Work Phone: WBC Morphology NOT REPORTED [facility] Work Phone: Lipid PanelOrdered By: Roman Might on 10-17-2019 Cholesterol [Mass/Vol] 216 mg/dL High <[address] [facility] [employer] Work Phone: Comment on above: Cholesterol Guidelines: <200 Desirable 200-240 Borderline >240 Undesirable Cholesterol in HDL [Mass/Vol] 105 mg/dL >40 [facility] [employer] Phone: Comment on above: HDL Guidelines: <40 Undesirable 40-59 Borderline >59 Desirable Cholesterol in LDL [Mass/Vol] 97 mg/dL 0 - 130 mg/dL [facility] Phone: Comment on above: LDL Guidelines: <100 Desirable 100-129 Near to/above Desirable 130-159 Borderline >159 Undesirable Direct (measured) LDL and calculated LDL are not interchangeable tests. Cholesterol.total/Choles terol in HDL [Mass ratio] 2.1 {ratio} <5 [facility] [employer] Phone: Triglyceride [Mass/Vol] 72 mg/dL <150 [facility] [employer] Work Phone: Comment on above: Triglyceride Guidelines: <150 Desirable 150-199 Borderline 200-499 High >499 Very high Based on AHA Guidelines for fasting triglyceride, July 2012. VLDL NOT REPORTED 1 - 30 mg/dL [facility] Work Phone: No Panel InformationOrdered By: Roman Might on 10-17-2019 Interpretation and review of laboratory results Abnormal [facility] [employer] Phone: Vital Signs Date Time Vital Sign Value Performing Clinician Lisa vee 09-20-2023 09:35-0500 Body temperature 98.29 [degF] Roman Archibald [employer] SERVICE [employer] Work Phone: [facility] 09-20-2023 09:35-0500 Diastolic blood pressure 77 mm[Hg] Roman Might [employer] AND SERVICE [employer] Work Phone: [facility] 09-20-2023 09:35-0500 Heart rate 77 /min Roman Might SAL[employer] AND SERVICE [employer] Work Phone: [facility] 09-20-2023 09:35-0500 Respiratory rate 18 /min Roman Might SAL[employer] AND SERVICE [employer] Work Phone: [facility] 09-20-2023 09:35-0500 SaO2% (BldA) [Mass fraction] 96 % Roman Might [employer] AND SERVICE [employer] Work Phone: [facility] 09-20-2023 09:35-0500 Systolic blood pressure 172 mm[Hg] Roman Might [employer] SERVICE [employer] Work Phone: [facility] Encounters Encounter Date Encounter Type Care Provider Facility Start: 01-26-2024 End: 01-27-2024 ambulatory ROMAN W M[facility] Start: 01-19-2024 End: 01-22-2024 ambulatory ROMAN W MIGHT [facility] Start: 01-19-2024 End: 01-21-2024 Subsequent hospital visit by physician Roman Archibald [employer] SERVICE [employer] Work Phone: [facility] Start: 10-21-2023 End: 10-22-2023 ambulatory ROMAN W MIGHT [facility] Start: 09-20-2023 End: 09-20-2023 Emergency department patient visit ROMAN W MIGHT [facility] Start: 09-20-2023 End: 09-20-2023 Emergency department patient visit Roman Might [employer] SERVICE [employer] Work Phone: [facility] ED Comment on above: Acute superficial ga stritis without hemorrhage (Primary Dx) Start: 10-15-2022 End: 10-15-2022 Patient encounter status Roman Might SAL[employer] AND SERVICE ASSOC[employer] Work Phone: [facility] Start: 10-15-2022 End: 10-15-2022 Subsequent hospital visit by physician Roman Archibald [employer] AND SERVICE [employer] Work Phone: [facility] Comment on above: Wellness examination ; Lipid screening; Diabetes mellitus screening; Dyslipidemia Start: 10-14-2022 End: 10-15-[address] SY [facility] Facility:[facility] Start: 10-17-2020 End: 10-17-2020 Subsequent hospital visit by physician [facility] Room [facility] Comment on above: Dyslipidemia Start: 10-17-2019 End: 10-17-2019 Subsequent hospital visit by physician [facility] Room [facility] Comment on above: Hyperlipidemia, unsp ecified hyperlipidemia type Procedures Date Procedure Procedure Detail Performing Clinician Start: 09-20-2023 Urnls dip stick/tabl et reagent auto microscopy Nupur Linton MD Work Phone: Start: 09-20-2023 Comprehensive metabo lic panel Nupur Linton MD Work Phone: Start: 10-15-2022 Lipid panel Roman W Mi ght [employer] SERVICE [employer] Work Phone: Start: 10-15-2022 Basic metabolic pane l calcium total Roman W Might [employer] SERVICE [employer] Work Phone: Start: 10-17-2020 Lipid panel Roman W Mi ght Work Phone: Start: 10-17-2020 Basic metabolic pane l calcium total Roman W Might Work Phone: Start: 10-17-2020 Transferase alanine amino alt sgpt Roman W Might Work Phone: Start: 10-17-2020 Transferase aspartat e amino ast sgot Roman W Might Work Phone: Start: 10-17-2019 Basic metabolic pane l calcium total Roman W Might [employer] SERVICE [employer] Work Phone: Start: 10-17-2019 Lipid panel Roman W Mi ght [employer] SERVICE [employer] Work Phone: Start: 06-09-2017 Colonoscopy Roman Bhardwaj t SAL[employer] AND SERVICE ASSOC[employer] Work Phone: Plan of Treatment Date Care Activity Detail Author Start: 11-11-2031 DTaP/Tdap/Td vaccine (3 - Td or Tdap) DTaP/Tdap/Td vaccine (3 - Td or Tdap) [facility] Start: 06-09-2027 Colon cancer screen colonoscopy Colon cancer screen colonoscopy [facility] Work Phone: Start: 06-09-2027 Screening for malign ant neoplasm of colon [facility] Start: 01-18-2025 Depression Screen Depression Screen [facility] Start: 10-27-2024 End: 10-27-2024 Patient encounter procedure 10/27/2024 8:40 AM EST Office Visit [facility] [address] [place] [address] Roman Archibald, SALES AND SERVICE ASSOC[employer]ATE [employer] [address] [place] [id number] awv check up [facility] Comment on above: awv check up Start: 10-26-2024 Hepatitis C screening Hepatitis C sc reen [facility] Comment on above: Postponed from 07/30 (Patient Refused) Start: 10-26-2024 Screening for osteoporosis DEXA (modify frequency per FRAX score) [facility] Comment on above: Postponed from 07/30 (Patient Refused) Start: 10-21-2024 Lipid panel Lipids [facility] Start: 10-14-2024 Screening for malign ant neoplasm of breast Breast cancer screen [facility] Start: 01-27-2024 End: 01-27-2024 Patient encounter procedure 01/27/2024 11:30 AM EDT Appointment [facility] Physical Therapy [address] [place], [place] [id number] [facility] Re[facility] Start: 10-26-2023 End: 10-26-2023 Patient encounter procedure 10/26/2023 8:40 AM EST Office Visit [facility] [address] [place] [address] Roman Archibald, SALES AND SERVICE ASSOCIATE [employer] [address] [place] [address] awv and check up [facility] Comment on above: awv and check up Start: 10-23-2023 Annual Wellness Visi t (AWV) Annual Wellness Visit (AWV) [facility] Start: 10-22-2023 Depression Screen Depression Screen [facility] Start: 10-22-2023 Hepatitis C screening Hepatitis C sc reen [facility] Comment on above: Postponed from 07/30 (Patient Refused) Start: 10-22-2023 Screening for osteoporosis DEXA (modify frequency per FRAX score) [facility] Comment on above: Postponed from 07/30 (Patient Refused) Start: 10-15-2023 Lipid panel Lipids [facility] Start: 06-04-2023 COVID-19 Vaccine () COVID-19 Vaccine () [facility] Start: 10-22-2022 End: 10-22-2022 Patient encounter procedure 10/22/2022 Office Visit Primary Care Roman Archibald APRN - [employer] [address] [place] [place] [address] [facility] Start: 10-17-2022 Depression Screen Depression Screen [facility] Start: 10-17-2022 Hepatitis C screening Hepatitis C sc reen [facility] Comment on above: Postponed from 07/30 (Patient Refused) Start: 10-17-2022 Screening for osteoporosis DEXA (modify frequency per FRAX score) [facility] Comment on above: Postponed from 07/30 (Patient Refused) Start: 10-10-2022 Screening for malign ant neoplasm of breast Breast cancer screen [facility] [place], [place] Start: 12-02-2021 DTaP/Tdap/Td vaccine (2 - Td) DTaP/Tdap/Td vaccine (2 - Td) [facility] Work Phone: Start: 10-17-2021 Lipid panel Lipid screen [facility] [place], [place] Start: 10-17-2021 End: 10-17-2021 Office Visit 10/17/2021 Office Visit Primary Care Roman Archibald APRN - [employer] [address] [place] [address] [phone] [facility] [place] Start: 10-09-2021 Breast cancer screen Breast cancer s jill [facility] Work Phone: Start: 08-25-2021 COVID-19 Vaccine (4 - Booster for Pfizer series) COVID-19 Vaccine (4 - Booster for Pfizer series) [facility] Start: 10-17-2020 Lipid screen [facility]id screen [facility] [facility] Work Phone: Start: 10-16-2020 DEXA (modify frequen cy per FRAX score) DEXA (modify frequency per FRAX score) [facility] Work Phone: Comment on above: Postponed from 07/30 (Patient Refused) Start: 10-16-2020 Hepatitis C screen Hepatitis C scree n [facility] Work Phone: Comment on above: Postponed from 07/30 (Patient Refused) Start: 10-16-2020 End: 10-16-2020 Patient encounter procedure 10/16/2020 Office Visit Primary Care Roman Archibald SALES AND SERVICE ASSOCIATE - [employer] [address] [place] [address] [phone] [facility] Start: 03-01-2019 Annual Wellness Visi t (AWV) Annual Wellness Visit (AWV) [facility] Start: 2004 Screening for osteoporosis DEXA (modify frequency per FRAX score) [place], [place] Start: 1994 Screening for malign ant neoplasm of colon [facility] Start: 1949 Hepatitis C screening Hepatitis C sc [place], [place] Immunizations Immunization Date Immunization Notes Care Provider Fa cility 06-24-2023 RSV, AREXVY, (age 60 y+), PF, IM, 0.5mL Roman Archibald SALES AND SERVICE ASSOCIATE - [employer] Work Phone: [facility] 06-16-2023 Influenza, FLUZONE ( age 65 y+), High Dose, 0.7mL Roman Might SALES AND SERVICE ASSOCIATE - [facility] Work Phone: [facility] 06-16-2023 Pneumococcal, PCV20, PREVNAR 20, (age 6w+), IM, 0.5mL Roman Might [facility] Work Phone: [facility] 06-24-2022 COVID-19, PFIZER Bivalent, DO NOT Dilute, (age 12y+), IM, 30 mcg/0.3 mL Roman Might [facility] Work Phone: [facility] 06-24-2022 COVID-19, PFIZER PUR PLE top, DILUTE for use, (age 12 y+), 30mcg/0.3mL Roman Might [facility] Work Phone: [facility] 06-10-2022 Influenza, FLUZONE ( age 65 y+), High Dose, 0.7mL Roman Might [facility] Work Phone: [facility] Work Phone: 11-11-2021 tetanus toxoid, redu danii diphtheria toxoid, and acellular pertussis vaccine, adsorbed Roman Might [facility] Work Phone: [facility] Work Phone: 06-30-2021 COVID-19, PFIZER PUR PLE top, DILUTE for use, (age 12 y+), 30mcg/0.3mL Roman Might [facility] Work Phone: [facility] Work Phone: 06-03-2021 Influenza, FLUZONE ( age 65 y+), High Dose, 0.7mL Roman Might [facility] Work Phone: [facility] 06-03-2021 influenza, high dose seasonal, preservative-free Roman Might [facility] Work Phone: [facility] 11-29-2020 COVID-19, PFIZER PUR PLE top, DILUTE for use, (age 12 y+), 30mcg/0.3mL Roman Might SALES AND SERVICE ASSOCIATE - [facility] [facility] Work Phone: [facility] 11-08-2020 COVID-19, PFIZER PUR PLE top, DILUTE for use, (age 12 y+), 30mcg/0.3mL Roman Might SALES AND SERVICE ASSOCIATE - [facility] [facility] Work Phone: [facility] Work Phone: 06-13-2020 Influenza, FLUZONE ( age 65 y+), High Dose, 0.7mL Roman Might SALES AND SERVICE ASSOCIATE - [employer] [facility] Work Phone: [facility] 06-13-2020 influenza, injectabl e, quadrivalent, contains preservative [facility] 06-20-2019 influenza, high dose seasonal, preservative-free [facility] Work Phone: 10-25-2018 zoster vaccine recombinant [facility] [employer] Phone: 07-06-2018 influenza, high dose seasonal, preservative-free [facility] [employer] Phone: 05-24-2018 zoster vaccine recombinant [facility] [employer] Phone: 07-07-2017 Influenza Vaccine, unspecified formulation [facility] Phone: 07-07-2017 influenza virus vacc ine, unspecified formulation [facility] 06-16-2017 Influenza Vaccine, unspecified formulation [facility] Work Phone: 09-15-2016 pneumococcal polysaccharide vaccine, 23 valent [facility] [employer] Phone: 07-18-2015 influenza, high dose seasonal, preservative-free [facility] Work Phone: 09-11-2013 pneumococcal conjuga te vaccine, 13 valent [facility] Work Phone: 06-12-2012 zoster vaccine, live [facility] Work Phone: 05-02-2012 zoster vaccine, live [facility] Work Phone: 12-03-2011 tetanus toxoid, redu danii diphtheria toxoid, and acellular pertussis vaccine, adsorbed [facility] Work Phone: 08-26-2009 novel influenza-H1N1 -09, preservative-free, injectable [facility] Work Phone: 07-11-2008 influenza virus vacc ine, whole virus [facility] Work Phone: 08-17-2007 influenza virus vacc ine, whole virus [facility] Phone: Payers Date Payer Category Payer Medicare AETNA MEDICARE A ETNA MEDICARE-ADVANTAGE PPO [id number] 2017-Present [address] [place] [address] Medicare [id number] [id number] 2017 Medicare AETNA MEDICARE A ETNA MEDICARE-ADVANTAGE PPO xxxxxxxx 2017-Present [address] [place] [address] Medicare [id number] 1959 Medicare [id number] 1949 Unknown [id number] 1949 Unknown [id number] 1949 Unknown [id number] 1949 Unknown [id number] 1949 Unknown [id number] 1949 Unknown [id number] Social History Date Type Detail Facility Start: 10-16-2020 End: 10-22-2022 Tobacco smoking status NHIS Never smoker [employer] Phone: Start: 10-16-2020 End: 10-22-2022 Tobacco use and exposure Never used [employer] Start: 10-16-2020 End: 01-19-2024 Alcohol intake Current non-drinker of alcohol (finding) [employer] Phone: Start: 10-16-2019 History SDOH Education 18 [employer] Phone: Start: 10-16-2020 History SDOH Financial [employer] [place] Start: 10-16-2019 History SDOH Food Worry 1 [employer] Phone: Start: 10-16-2019 History SDOH Transport Med 2 [employer] Phone: Start: 1950 Sex Assigned At Not on file [employer] Phone: Exposure to SARS-CoV -2 (event) Not sure [employer] [place] Start: 10-16-2019 History SDOH Financial 5 [employer] Phone: Start: 10-22-2022 End: 10-26-2023 History of Social function [employer] Start: 10-22-2022 End: 10-26-2023 Alcohol Use Disorder Identification Test - Consumption [AUDIT-C] [employer] Frequency of Alcohol Consumption Not on file [employer] How often to you hav e a drink containing alcohol? Never [facility] Discharge instructions 09-20-2023 Discharge InstructionsAttachments Note Date & Type Note Facility 09-20-2023 Hospital Discharg e instructions Vasile Pearson APRN - CNP - 09/20/2023 11:41 AM EST Increase fluids [facility] diet -no spicy, fried, dairy x 24-48 hours.Advance diet as tolerated. Pepcid 20 mg 1 by mouth every 12 hours x 14 days. Bentyl 10 mg 1 by mouth every 6 hours prn abdominal spasm. The following attachments cannot be sent through Care Everywhere.Gastritis (Ukrainian)documented in this encounter [employer] Evaluation note Note Date & Type Note Facility Evaluation note Diagnosis Hyperlipidemia, unspecified hyperlipidemia type documented in this encounter [employer] Phone: Evaluation note Note Date & Type Note Facility Evaluation note Diagnosis Wellness examination Lipid screening Screening for lipoid disorders Diabetes mellitus screening Screening for diabetes mellitus Dyslipidemia Other and unspecified hyperlipidemia documented in this encounter [employer] Phone: Evaluation note Note Date & Type Note Facility Evaluation note Diagnosis Acute superficial gastritis without hemorrhage- Primary documented in this encounter [employer] Assessments Diagnosis Dyslipidemia Other and unspecified hyperlipidemia Advance Directives No Advanced Directives Records FoundDocuments on File Type Date Recorded Patient Security Intern Expl anation ACP-Advance Directive ACP-Power of Director Of Exhibit Development Documents on File Type Date Recorded Patient Security Intern Expl anation Advance Directives and Living Will Power of Director Of Exhibit Development Healthcare Agents on File Name Relationship Healthcare Agent Relationshi p Communication Huang Dickey Spouse Primary Decision Maker 567- (Home) Healthcare Agents on File Name Relationship Healthcare Agent Relationshi p Communication Huang Dickey Spouse Primary Decision Maker 567-2 (Home) Healthcare Agents on File Name Relationship Healthcare Agent Relationshi p Communication Huang Dickey Spouse Primary Decision Maker 567- (Home) Summary Purpose Family History No Family History Records FoundNo Family History Records Found Additional Source Comments Care Teams (unrecognized sec tion and content) 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 Relationship Specialty Start Date End Date Roman Archibald APRN - CNP PCP - General Nurse Practitioner 10/12/17 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 Relationship Specialty Start Date End Date Roman Archibald APRN - [employer] PCP - General Nurse Practitioner 10/12/17 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 Nausea Ordered Prescriptions (unrec ognized section and content) Prescription Sig Dispensed Refills Start Date End Da te famotidine (PEPCID) 20 MG tablet Take 1 tablet by mouth 2 times daily for 14 days 28 tablet 0 09/20/2023 10/04/2023 dicyclomine (BENTYL) 20 MG tablet Take 1 tablet by mouth 4 times daily as needed (abdominal cramping) 20 tablet 0 09/20/2023 dicyclomine (BENTYL) 20 MG tablet Take 1 tablet by mouth 4 times daily as needed (abdominal cramping) 20 tablet 0 09/20/2023 09/20/2023 famotidine (PEPCID) 20 MG tablet Take 1 tablet by mouth 2 times daily for 14 days 28 tablet 0 09/20/2023 09/20/2023 Scheduled Active and Recently Administ ered Medications (unrecognized section and content) Medication Order 09/18/2023 09/19/2023 09/20/2023 dicyclomine (BENTYL) capsule 10 mg (COMPLETED) 10 mg, Oral, ONCE, 1 dose, On 09/20/23 at 1130 1132 (Given - Provid er: Radha Gil RN) FOR RECORDS PERTAINING TO PATIENTS WHO ARE OR HAVE BEEN ENROLLED IN A CHEMICAL DEPENDENCY/SUBSTANCEABUSE PROGRAM, SOME INFORMATION MAY BE OMITTED. This clinical summary was aggregated from multiple sources. Caution should be exercised in using it in the provision of clinical care. This summary normalizes information from multiple sources, and as a consequence, information in this document may materially change the coding, format and clinical context of patient data. In addition, data may be omitted in some cases. CLINICAL DECISIONS SHOULD BE BASED ON THE PRIMARY CLINICAL RECORDS. [employer] [facility]. provides no warranty or guarantee of the accuracy or completeness of information in this document.
== END 2024-10-16 07:46 | disposition home or self-care (01) ==
LOC: MAMMO 07:45
DX: Z12.31 Encounter for screening mammogram for malignant neoplasm of breast (principal)
CPT/HCPCS: 77063; 77067